=== PATIENT | female | born 1945 | race Caucasian/White ===

== ENCOUNTER → 2019-09-14 07:37 | Outpatient (CLI) | payer MEDICARE, OTHER, SELFPAY ==
--- NOTE | 2019-09-14 | DI.MRI.S_ITS ---
PROCEDURE: MR ANGIO HEAD WO CON INDICATIONS: Diplopia, dizziness and giddiness TECHNIQUE: Noncontrast axial 3-D [id number] MR angiogram, with 3-dimensional maximum intensity projection (MIP) reformats of the internal carotid arteries and posterior circulation then performed. COMPARISON: None. FINDINGS: Image quality: Excellent. Anterior circulation: Intracranial internal carotid arteries demonstrate normal size and intraluminal flow signal. The flow within the paired anterior cerebral arteries is normal and symmetric. The flow within the middle cerebral arteries is normal and symmetric. The anterior communicating artery is seen. No stenoses, occlusions, or aneurysms. Posterior circulation: Visualized portions of the vertebral arteries demonstrate normal caliber, and join to form a normal appearing basilar artery. The flow within the posterior cerebral arteries is normal and symmetric. No stenoses, occlusions, or aneurysms. Posterior circulation vessels are tortuous but no area of stenosis or thrombosis is found. IMPRESSION: No arterial source of current symptomatology is identified. No area of stenosis or embolus seen. Dictated by: Arturo Gamez M.D. on 09/14/2019 at 9:52 Approved by: Arturo Gamez M.D. on 09/14/2019 at 9:57
--- NOTE | 2019-09-14 | DI.MRI.S_ITS ---
PROCEDURE: MR HEAD/BRAIN WO/W CON INDICATIONS: Diplopia,Dizziness and giddiness TECHNIQUE: Noncontrast axial T1 spin echo, axial T2 fast spin echo, sagittal and axial FLAIR, coronal T2 fast spin echo, axial gradient echo, axial diffusion and ADC through the brain. After the administration of contrast, axial and coronal 3D VIBE or T1 spin echo with fat saturation through the brain. COMPARISON: None. FINDINGS: Image quality: Excellent. CSF Spaces: Basal cisterns are patent. No extra-axial fluid collections. Ventricles are normal in size and shape. Brain: No midline shift. No intracranial bleeds or masses. No abnormal intracranial enhancement. The brainstem appears normal. Diffusion-weighted images demonstrate no acute ischemic insults. There is mild microvascular atherosclerotic change in the deep white matter of each hemisphere, expected for age. No chronic ischemic insults. Normal intravascular flow voids are present. Skull and face: Calvarial marrow is normal in signal. Orbits appear normal. Sinuses: Sinuses and mastoids appear clear. IMPRESSION: Source of altered mental status and dilated fallopian/dizziness is not found. No ischemic injury is seen, no cranial nerve inflammation or mass is identified. Dictated by: Arturo Gamez M.D. on 09/14/2019 at 9:39 Approved by: Arturo Gamez M.D. on 09/14/2019 at 9:41
== END ==
PROVIDERS: PCP Family Medicine; Referring Provider Family Medicine; Visit Provider Nurse Practitioner Family
DX: H53.2 Diplopia (principal); R42 Dizziness and giddiness; R41.82 Altered mental status, unspecified
CPT/HCPCS: 70544; 70553